=== PATIENT | female | born 1975 | race Caucasian/White ===

== ENCOUNTER 2020-12-16 11:48 | Emergency (ER) | payer OTHER ==
[2020-12-16] MEDS ORDERED: CYCLOBENZAPRINE10 MG PO (14:57)
[2020-12-16] MEDS ORDERED: MEDROL 4MG DOSEP4 MG PO (14:57)
== END 2020-12-16 15:20 | disposition home or self-care (01) ==
LOC: FER 11:48
DX: S43.402A Unspecified sprain of left shoulder joint, initial encounter (principal); S73.102A Unspecified sprain of left hip, initial encounter; I10 Essential (primary) hypertension; Z79.899 Other long term (current) drug therapy; V49.40XA Driver injured in collision with unspecified motor vehicles in traffic accident, initial encounter; Y92.410 Unspecified street and highway as the place of occurrence of the external cause
CPT/HCPCS: 73030; 73502; J1100